=== PATIENT | male | born 1975 | race Caucasian/White ===

== ENCOUNTER → 2016-12-01 | Outpatient (CLI) | payer OTHER ==
[~2016-12-01] MED LIST: NAPROSYN500 MG PO; NO HOME MEDICATIONS; [UNRECOGNIZED DRUG - OTHER]
== END ==
LOC: COL.RAD 11:53
DX: M71.22 Synovial cyst of popliteal space [Baker], left knee (principal)
CPT/HCPCS: 26396

== ENCOUNTER → 2018-09-09 | Outpatient (CLI) | payer OTHER | LOC: COL.RAD 07:28 | DX: M75.112 Incomplete rotator cuff tear or rupture of left shoulder, not specified as traumatic (principal); Z98.890 Other specified postprocedural states ==

== ENCOUNTER 2019-06-18 23:47 | Emergency (ER) | payer OTHER ==
[~2019-06-18] VITALS: Ht 190.5 cm; Wt 97.3 kg
[2019-06-19] LABS: BASO # 0.1 (0.0-0.2); EOS # 0.2 (0.0-0.7); EOS % 2.8 % (0-4.0); GRAN # 4.8 (1.4-6.5); GRAN % 60.8 % (42.2-75.2); HEMOGLOBIN 18.3 g/dl (13.5-18.0); LYMPH % 25.2 % (20.0-51.0); MEAN CELL VOLUME 96 fl (80.0-100.0); MEAN CORPUSCULAR HEMOGLOBIN 34 pg (27.0-31.0); MEAN CORPUSCULAR HGB CONC 35 g/dl (33.0-37.0); MEAN PLATELET VOLUME 9.4 fl (7.4-10.4); MONO # 0.8 (0.1-0.6); MONO % 10.1 % (1.7-9.3); PLATELET COUNT 221 K/mm3 (130-400); RED BLOOD COUNT 5.42 M/mm3 (4.20-5.60)
[2019-06-19 00:11] LABS: ACETAMINOPHEN < 10 ug/mL (10-30); ALANINE AMINOTRANSFERASE 49 U/L (21-72); ALBUMIN 4.5 gm/dL (3.5-5.0); ALCOHOL(ethanol),MEDICAL 65 mg/dL; ALKALINE PHOSPHATASE 70 U/L (50-136); ANION GAP 10 mmol/L (7-16); AST,SGOT 49 U/L (15-37); BILIRUBIN,TOTAL 0.5 mg/dL (0.0-1.0); BLOOD UREA NITROGEN 17 mg/dL (9-20); CALCIUM 8.9 mg/dL (8.4-10.2); CARBON DIOXIDE 25 mmol/L (22-30); CHLORIDE 105 mmol/L (98-107); CREATININE, serum 1.32 (0.66-1.25); GLUCOSE 79 mg/dL (74-106); POTASSIUM 4.1 mmol/L (3.4-5.0); SODIUM 140 mmol/L (137-145); TOTAL PROTEIN 7.7 gm/dL (6.4-8.2)
[2019-06-19 06:27] LABS: COLLECTION METHOD CLEAN CATCH
[2019-06-19 06:39] LABS: MUCOUS Present /lpf; PH 5 (5-8); SQUAMOUS EPITHELIAL None Seen /hpf; URINE APPEARANCE Clear; URINE BACTERIA None Seen /hpf; URINE BILIRUBIN Negative (NEGATIVE); URINE BLOOD Negative (NEGATIVE); URINE COLOR Yellow; URINE GLUCOSE Negative (NEGATIVE); URINE KETONE Negative (NEGATIVE); URINE LEUKOCYTE ESTERASE Negative (NEGATIVE); URINE NITRATE Negative (NEGATIVE); URINE PROTEIN(semi-quant) Negative (NEGATIVE); URINE RBC 0-2 /hpf; URINE UROBILINOGEN Negative (NEGATIVE)
[2019-06-19 06:52] LABS: TRICYCLIC ANTIDEPRESS URINE NEGATIVE
[2019-06-20 18:14] VITALS: BP 122/71; PULSE 62; TEMP 98.2
== END 2019-06-20 18:10 ==
LOC: COL.ER 23:47
PROVIDERS: Emergency Medicine
DX: T42.4X2A Poisoning by benzodiazepines, intentional self-harm, initial encounter (principal); F32.9 Major depressive disorder, single episode, unspecified; F41.9 Anxiety disorder, unspecified; I10 Essential (primary) hypertension
CPT/HCPCS: J7030

== ENCOUNTER 2019-12-16 15:56 | Emergency (ER) | payer OTHER ==
[~2019-12-16] VITALS: Ht 190.5 cm; Wt 93.2 kg
[2019-12-16 16:06] VITALS: BP 136/85; PULSE 79; TEMP 98.1
[2019-12-16 18:31] LABS: BASO # 0.1 (0.0-0.2); BASO % 1.3 % (0.0-2.0); EOS # 0.1 (0.0-0.7); EOS % 1.5 % (0-4.0); GRAN # 3.8 (1.4-6.5); HEMATOCRIT 48.6 % (42.0-52.0); HEMOGLOBIN 17.3 g/dl (13.5-18.0); LYMPH # 1.4 (1.2-3.4); LYMPH % 22.6 % (20.0-51.0); MEAN CELL VOLUME 96 fl (80.0-100.0); MEAN CORPUSCULAR HEMOGLOBIN 34 pg (27.0-31.0); MEAN CORPUSCULAR HGB CONC 36 g/dl (33.0-37.0); MEAN PLATELET VOLUME 9.2 fl (7.4-10.4); MONO # 0.7 (0.1-0.6); MONO % 11.3 % (1.7-9.3); PLATELET COUNT 209 K/mm3 (130-400); RED BLOOD COUNT 5.07 M/mm3 (4.20-5.60); REDCELL DISTRIBUTION WIDTH-CV 12.4 % (11.5-14.5)
[2019-12-16 18:41] LABS: ALANINE AMINOTRANSFERASE 35 U/L (4-49); ALBUMIN 4.1 gm/dL (3.5-5.0); ALKALINE PHOSPHATASE 66 U/L (50-136); ANION GAP 9 mmol/L (7-16); AST,SGOT 30 U/L (15-37); BILIRUBIN,TOTAL 0.8 mg/dL (0.0-1.0); BLOOD UREA NITROGEN 21 mg/dL (9-20); CARBON DIOXIDE 28 mmol/L (22-30); CHLORIDE 100 mmol/L (98-107); CREATININE, serum 1.29 (0.66-1.25); GLUCOSE 175 mg/dL (74-106); POTASSIUM 3.8 mmol/L (3.4-5.0); SODIUM 137 mmol/L (137-145)
[2019-12-16 18:59] LABS: ACETAMINOPHEN < 10 ug/mL (10-30); ALCOHOL(ethanol),MEDICAL < 10 mg/dL; SALICYLATE < 1.0 mg/dL
== END 2019-12-16 20:00 | disposition home or self-care (01) ==
LOC: COL.ER 15:56
PROVIDERS: Family Medicine
DX: T39.1X2A Poisoning by 4-Aminophenol derivatives, intentional self-harm, initial encounter (principal); T58.91XA Toxic effect of carbon monoxide from unspecified source, accidental (unintentional), initial encounter; F32.9 Major depressive disorder, single episode, unspecified

== ENCOUNTER 2023-07-28 09:24 | Inpatient (IN) | payer OTHER ==
[~2023-07-28] VITALS: Ht 190.5 cm; Wt 98.6 kg
[2023-07-28 10:20] LABS: EOS # 0.2 K/mm3 (0.0-0.7); EOS % 5.7 % (0.0-4.0); GRAN # 2.2 K/mm3 (1.4-6.5); GRAN % 53.5 % (42.2-75.2); HEMOGLOBIN 16.9 g/dl (13.5-18.0); LYMPH # 1.1 K/mm3 (1.2-3.4); LYMPH % 27.2 % (20.0-51.0); MEAN CELL VOLUME 100 fl (80.0-100.0); MEAN CORPUSCULAR HEMOGLOBIN 35 pg (27-31); MEAN CORPUSCULAR HGB CONC 35 g/dl (33.0-37.0); MEAN PLATELET VOLUME 9.3 fl (7.4-10.4); MONO # 0.5 K/mm3 (0.1-0.6); MONO % 12.4 % (1.7-9.3); PLATELET COUNT 207 K/mm3 (130-400); RED BLOOD COUNT 4.89 M/mm3 (4.20-5.60); REDCELL DISTRIBUTION WIDTH-CV 13.1 % (11.5-14.5)
[2023-07-28 10:31] LABS: COLLECTION METHOD CLEAN CATCH
[2023-07-28 10:37] LABS: ALANINE AMINOTRANSFERASE 95 U/L (0-55); ALBUMIN 3.9 gm/dL (3.5-5.0); ALKALINE PHOSPHATASE 69 U/L (40-150); ANION GAP 11 mmol/L (7-16); AST,SGOT 72 U/L (5-34); BILIRUBIN,TOTAL 0.7 mg/dL (0.2-1.2); BLOOD UREA NITROGEN 11 mg/dL (9-21); CALCIUM 9.5 mg/dL (8.4-10.2); CARBON DIOXIDE 25 mmol/L (22-29); CHLORIDE 105 mmol/L (98-107); CREATININE, serum 1.37 mg/dL (0.72-1.25); GLUCOSE 103 mg/dL (70-99); POTASSIUM 3.9 mmol/L (3.5-4.5); SODIUM 141 mmol/L (136-145)
[2023-07-28 10:50] LABS: TROPONIN-I < 0.010 ng/mL (0.00-0.033)
[2023-07-28 11:07] LABS: TRICYCLIC ANTIDEPRESS URINE NEGATIVE
[2023-07-28 11:14] LABS: PH 7.5 (5.0-8.5); SQUAMOUS EPITHELIAL None Seen /hpf (0-10); URINE APPEARANCE Clear (CLEAR/HAZY); URINE BLOOD Negative (NEGATIVE); URINE COLOR Yellow (YELLOW); URINE GLUCOSE Negative (NEGATIVE); URINE KETONE Negative (NEGATIVE); URINE NITRATE Negative (NEGATIVE); URINE PROTEIN(semi-quant) Negative (NEGATIVE); URINE RBC None Seen /hpf (0-2); URINE UROBILINOGEN 0.2 E.U/dL (0.2-1.0)
--- NOTE | 2023-07-28 17:10 | NUR ---
PT ADMITTED FROM ED FOR CVA. PT IS AXOX4. PT IS ON RA. PT IS SB ON TELE. PT'S VSS. PT AMBULATES INDEPENDENTLY WITH A STEADY GAIT. NO SLURRED SPEECH, NO FACIAL DROOP. BILATERAL HAND STRENGTH STRONG AND EQUAL. RIGHT HAND HAS INTERMITTENT NUMBNESS FROM THE WRIST DOWN. BUT STILL HAS STRENGHT AND MOBILITY. PT ORIENTED TO ROOM AND FLOOR. PT GIVEN CALL LIGHT AND INSTRUCTED TO CALL WITH ALL NEEDS. ADMISSION COMPLETED. NOTIFIED OF ARRIVAL TO UNIT. STATES SHE SAW PT IN THE ER. PT PASSED BEDSIDE SWALLOW AND ABLE TO EAT. ORDERED AHA DIET.
[2023-07-28 17:11] VITALS: BP 126/84; PULSE 58; TEMP 97.9
[2023-07-28 17:28] VITALS: BP_SYST 126
[2023-07-28 19:52] VITALS: BP_SYST 140
[2023-07-28 20:00] VITALS: BP 140/71; PULSE 81; TEMP 98.1
--- NOTE | 2023-07-28 20:08 | NUR ---
Patient assessed around 1949. Denies having pain and discomfort. Peripheral INT to right AC. Denies SOB and dyspnea. LS CTA. HRR. Telemetry in place, normal sinus. BSAx4. Patient continues to have intermittent tingling/numbness to right hand only. 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 Voices no questions, needs, or concerns at this time. In bed with call light within reach.
[2023-07-28 23:15] VITALS: BP 109/66; PULSE 59; TEMP 97.5
[2023-07-29 00:38] VITALS: BP_SYST 109
[2023-07-29 03:59] VITALS: BP 114/68; PULSE 61; TEMP 97.5
[2023-07-29 04:01] VITALS: BP_SYST 114
[2023-07-29 05:42] LABS: BASO # 0.1 K/mm3 (0.0-0.2); BASO % 1.6 % (0.0-2.0); EOS # 0.4 K/mm3 (0.0-0.7); EOS % 6.9 % (0.0-4.0); GRAN # 2.9 K/mm3 (1.4-6.5); GRAN % 50.6 % (42.2-75.2); HEMATOCRIT 49.3 % (42.0-52.0); HEMOGLOBIN 17.5 g/dl (13.5-18.0); LYMPH # 1.6 K/mm3 (1.2-3.4); MEAN CELL VOLUME 98 fl (80.0-100.0); MEAN CORPUSCULAR HEMOGLOBIN 35 pg (27-31); MEAN CORPUSCULAR HGB CONC 36 g/dl (33.0-37.0); MEAN PLATELET VOLUME 9.6 fl (7.4-10.4); MONO # 0.7 K/mm3 (0.1-0.6); MONO % 11.5 % (1.7-9.3); PLATELET COUNT 215 K/mm3 (130-400); RED BLOOD COUNT 5.02 M/mm3 (4.20-5.60); REDCELL DISTRIBUTION WIDTH-CV 13.1 % (11.5-14.5)
--- NOTE | 2023-07-29 05:51 | NUR ---
Patient has denied having pain and discomfort this shift. Neuro checks remains WNL for patient. Voices no questions, needs, or concerns at this time. In bed with call light within reach.
[2023-07-29 06:13] LABS: ALBUMIN 3.6 gm/dL (3.5-5.0); BILIRUBIN,TOTAL 0.6 mg/dL (0.2-1.2); CALCIUM 9.4 mg/dL (8.4-10.2); CHOLESTEROL RISK RATIO 3.5; CREATININE, serum 1.45 mg/dL (0.72-1.25); TOTAL PROTEIN 6.7 gm/dL (6.2-8.1)
[2023-07-29 07:39] VITALS: BP 120/65; PULSE 71; TEMP 97.8
[2023-07-29] MEDS ORDERED: LIPITOR 80MG80 MG PO (10:20)
[2023-07-29] MEDS ORDERED: ASPIRIN 81M81 MG/TA2 PO (10:20)
--- NOTE | 2023-07-29 10:24 | NUR ---
Patient is alert and oriented x4 this morning. Shift assessment complete, no new variances noted. Right hand numbness continues, hand warehouseman strong and equal. No other extremities experiencing numbness. Patient voices no concerns other than discharge. Visitor at bedside. Patient currently in bed with call light in reach.
[2023-07-29 11:49] VITALS: BP 124/68; PULSE 87; TEMP 97.7
--- NOTE | 2023-07-29 13:45 | NUR ---
Discharge instructions discussed with patient including follow-up appointments, new medications, and education packets. Patient verbalized understanding. IV discontined to RAC with no complications. Telemetry off. Patient escorted out by friend/family and staff via ambulation.
== END 2023-07-29 13:51 | disposition home or self-care (01) | DRG 66 ==
LOC: COL.ER 09:24 → MEDICAL 16:16
PROVIDERS: Emergency Medicine; Physician Assistant; ADMIT Hospitalist
DX: I63.9 Cerebral infarction, unspecified (principal); R29.700 NIHSS score 0; N18.9 Chronic kidney disease, unspecified; Z72.0 Tobacco use; F10.90 Alcohol use, unspecified, uncomplicated
CPT/HCPCS: Q3014; Q9967